=== PATIENT | male | born 1930 | race Caucasian/White ===

== ENCOUNTER → 2017-06-03 | Outpatient (CLI) | payer MEDICARE ==
[~2017-06-03] MED LIST: ASPIRIN325 M2 PO; ASPIRIN81 M1 PO; COLACE100 MG PO; CRESTOR10 M1 PO; DAILY MULTIPLE1 TA6 PO; DAILY VALUE1 EACH PO; ELIGARD7.5 MG SC; LEVOTHYROXINE0.1 M1 PO; SIMVASTATIN20 MG PO; Synthroid,Lev100 MCG PO; VITAMIN D-32000 UNIT PO; VITAMIN D32000 UNIT PO
== END | disposition home or self-care (01) ==
LOC: LAB 11:58
DX: Z12.5 Encounter for screening for malignant neoplasm of prostate (principal)

== ENCOUNTER → 2017-09-03 | Day surgery (SDC) | payer MEDICARE ==
[~2017-09-03] VITALS: Ht 72 cm; Wt 70.8 kg
[~2017-09-03] MED LIST changes: +CASODEX50 MG PO; +LASIX20 MG PO; +LIPITOR40 MG PO; +PLAVIX75 M1 PO; +TOPROL XL25 MG PO; +VITAMIN D-32000 UNI1 PO
--- NOTE | ~2017-09-03 | O ---
[place], [place] OPERATIVE NOTE NAME: FINN CARTY UNIT #: [id number] ROOM: DOCTOR: LUIS VALDEZ MD BIRTHDATE: [birth year] DOS: PROCEDURE: 1. Esophagogastroduodenoscopy and biopsy. 2. Colonoscopy. INDICATION: Anemia. An informed consent was obtained from the patient after indication of procedures, alternatives and potential complications were explained to him. PROCEDURE MEDICATIONS: Sedation was administered by Anesthesiology Department. Scope used for upper endoscopy was Olympus diagnostic adult upper endoscope GIF-180. Depth of insertion was to the descending duodenum. For the colonoscopy, the scope used was Olympus pediatric colonoscope variable stiffness GIF-180. Depth of insertion was to the cecum, which was identified by the usual landmarks, appendiceal orifice, ileocecal valve and triangular fold, in addition to transillumination in the right lower quadrant. FINDINGS: After adequate sedation, the patient was placed in left lateral decubitus position. Upper endoscopy was performed first. Scope was introduced under direct visualization through the upper esophageal sphincter into the esophagus. Esophageal mucosa appeared normal with no ulcerations or strictures. Lower esophageal sphincter was identified at 38 cm from the incisors with normal appearing Z line. Stomach was then intubated. Gastric mucosa inspected. There gastric erosions were seen, mostly in the antrum, but no discrete ulcers or active bleeding. A CLOtest was performed from the gastric antrum and body. Retroflexed views in the fundus showed a grade 2 sliding hiatal hernia. Pylorus was intubated easily. The duodenal bulb and descending duodenum were within normal range. The scope was then withdrawn after the stomach was decompressed. We then proceeded with colonoscopy. Rectal examination showed a diminished sphincter tone and no external hemorrhoids. The scope was introduced into the rectum, then advanced to the cecum with marked difficulty due to fixed sigmoid loops and redundant colon. The prep was adequate. The colon mucosa appeared normal with no evidence of polyps, diverticula or ulcerations. Anterograde views of the rectum were unremarkable. The scope was then withdrawn after the rectum was decompressed. The patient tolerated the procedures well. IMPRESSION: 1. Hiatal hernia. 2. Gastritis and gastric erosions, CLOtest performed. 3. Normal upper gastrointestinal tract otherwise. 4. Normal colon mucosa with no polyps seen. PLAN: We will continue to monitor the patient's H and H. We will proceed with a capsule endoscopy as an outpatient to rule out small intestinal source of bleeding. Office followup will be scheduled in 2-3 weeks. [place], [place] OPERATIVE NOTE NAME: FINN CARTY UNIT #: [id number] ROOM: DOCTOR: LUIS VALDEZ MD BIRTHDATE: [birth year] LUIS VALDEZ MD CM:OPRECORD:OPERATIVE NOTE [id number] LUIS VALDEZ MD 09/03/17 [id number]
[2017-09-03 08:35] VITALS: BP 125/59
[2017-09-03 09:35] VITALS: BP 121/62
[2017-09-03 09:50] VITALS: BP 153/78
[2017-09-03 10:05] VITALS: BP 166/86
[2017-09-03 10:20] VITALS: BP 140/76
[2017-09-03 10:35] VITALS: BP 147/81
== END | disposition home or self-care (01) ==
LOC: SDC 08-23 10:15
DX: K29.70 Gastritis, unspecified, without bleeding (principal); K25.9 Gastric ulcer, unspecified as acute or chronic, without hemorrhage or perforation; K44.9 Diaphragmatic hernia without obstruction or gangrene; K63.89 Other specified diseases of intestine; I25.10 Atherosclerotic heart disease of native coronary artery without angina pectoris; I10 Essential (primary) hypertension; E78.00 Pure hypercholesterolemia, unspecified; M19.90 Unspecified osteoarthritis, unspecified site; E07.89 Other specified disorders of thyroid; Z85.46 Personal history of malignant neoplasm of prostate

== ENCOUNTER → 2017-09-17 | Outpatient (CLI) | payer MEDICARE ==
[2017-09-17 10:25] LABS: BASO # 0.1 10*3/uL (0.0-0.1); BASO % 0.9 % (0.0-1.0); EOS # 0.1 10*3/uL (0.0-0.4); EOS % 2.1 % (1.0-4.0); HEMATOCRIT 30.7 % (42.0-52.0); HEMOGLOBIN 10.3 g/dl (14.0-18.0); LYMPH # 1.9 10*3/uL (1.3-4.4); LYMPH % 36.4 % (27.0-41.0); MEAN CORPUSCULAR HGB 33.6 pg (27.0-31.0); MEAN CORPUSCULAR HGB CONC 33.6 g/dl (33.0-37.0); MEAN PLATELET VOLUME 10.9 fl (9.6-12.3); MONO # 0.5 10*3/uL (0.1-1.0); MONO % 9.6 % (3.0-9.0); NEUT # 2.7 10*3/uL (2.3-7.9); NEUT % 50.2 % (47.0-73.0); PLATELET COUNT AUTOMATED 167 10*3/uL (130-400); RED BLOOD COUNT 3.07 10*6/uL (4.50-5.90); RED CELL DISTRI WIDTH 14.2 % (0-14.5); WHITE BLOOD COUNT 5.3 10*3/uL (4.8-10.8)
== END ==
LOC: LAB 09:40
PROVIDERS: Nurse Practitioner Family
DX: D64.89 Other specified anemias (principal)

== ENCOUNTER 2017-11-30 15:06 | Emergency (ER) | payer MEDICARE ==
[~2017-11-30] VITALS: Ht 182.8 cm; Wt 74.8 kg
== END 2017-11-30 16:44 | disposition home or self-care (01) ==
LOC: ED 15:06
DX: E86.0 Dehydration (principal); Z79.899 Other long term (current) drug therapy; Z79.82 Long term (current) use of aspirin

== ENCOUNTER → 2017-12-08 | Outpatient (CLI) | payer MEDICARE | END | disposition home or self-care (01) | LOC: LAB 09:54 | DX: D64.9 Anemia, unspecified (principal) ==

== ENCOUNTER → 2017-12-13 | Outpatient (CLI) | payer MEDICARE | END | disposition home or self-care (01) | LOC: NM 08:03 | DX: R13.10 Dysphagia, unspecified (principal); D64.9 Anemia, unspecified; R53.83 Other fatigue ==

== ENCOUNTER → 2018-02-21 | Outpatient (CLI) | payer MEDICARE ==
[2018-02-21 08:50] LABS: CREATININE 1.46 mg/dL (0.70-1.30); POTASSIUM 4.3 mmol/L (3.5-5.1)
[2018-02-21 09:06] LABS: BASO # 0.1 10*3/uL (0.0-0.1); EOS # 0.1 10*3/uL (0.0-0.4); EOS % 2.5 % (1.0-4.0); HEMATOCRIT 33.7 % (42.0-52.0); HEMOGLOBIN 11.2 g/dl (14.0-18.0); LYMPH # 1.8 10*3/uL (1.3-4.4); LYMPH % 37.4 % (27.0-41.0); MEAN CELL VOLUME 101.2 fl (80.0-94.0); MEAN CORPUSCULAR HGB 33.6 pg (27.0-31.0); MEAN CORPUSCULAR HGB CONC 33.2 g/dl (33.0-37.0); MEAN PLATELET VOLUME 11.5 fl (9.6-12.3); MONO # 0.4 10*3/uL (0.1-1.0); MONO % 9.1 % (3.0-9.0); NEUT # 2.4 10*3/uL (2.3-7.9); NEUT % 49.6 % (47.0-73.0); PLATELET COUNT AUTOMATED 161 10*3/uL (130-400); RED BLOOD COUNT 3.33 10*6/uL (4.50-5.90); WHITE BLOOD COUNT 4.8 10*3/uL (4.8-10.8)
== END | disposition home or self-care (01) ==
LOC: LAB 07:54
PROVIDERS: Internal Medicine Cardiovascular Disease
DX: I10 Essential (primary) hypertension (principal)